=== PATIENT | male | born 1945 | race Caucasian/White ===

== ENCOUNTER 2018-02-03 13:21 | Outpatient (CLI) | payer MEDICARE, OTHER ==
--- NOTE | 2018-02-04 09:41 | XRAY Report ---
BILATERAL HANDS: 02/03/2018 HISTORY: Thumb pain. TECHNIQUE: Three views of each hand are performed. COMPARISON: Left wrist 01/07/2010. FINDINGS: RIGHT HAND: Osteoarthritic degenerative change is present at the right first SNF articulation with joint space narrowing, sclerosis, spurring, and early subluxation. Minimal scattered degenerative changes interphalangeal joints of the fingers. No other significant findings. 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 Minor scattered interphalangeal finger joint degenerative changes. Moderate radiocarpal joint degenerative change. IMPRESSION: BILATERAL DEGENERATIVE CHANGES, MOST MARKED FIRST METACARPOCARPAL ARTICULATION BILATERALLY. TD: 02/04/2018 09:28
== END 2018-02-03 13:22 | disposition home or self-care (01) ==
LOC: DI.N 13:21
PROVIDERS: ATTEND Internal Medicine
DX: M19.042 Primary osteoarthritis, left hand (principal); M19.041 Primary osteoarthritis, right hand

== ENCOUNTER 2018-02-18 11:06 | Outpatient (CLI) | payer MEDICARE, OTHER ==
--- NOTE | 2018-02-18 12:49 | XRAY Report ---
Procedure Date: 02/18/2018 Accession Number: [id number] / [id number] Procedure: XRN - Chest 2 View X-Ray CPT Code: 81347 FULL RESULT: EXAM: Chest 2 View X-Ray DATE: 02/18/2018 11:23 AM CLINICAL HISTORY: nocturnal wheezing COMPARISON: 12/24/2015 TECHNIQUE: 2 views. FINDINGS: Lungs/Pleura: No focal opacities evident. No pneumothorax or pleural effusion. Normal volumes. Mediastinum: Heart and mediastinal contours are unremarkable. Other: No acute findings compared with 12/24/2015 IMPRESSION: Negative 2-view chest radiography. RADIA
== END 2018-02-18 11:07 | disposition home or self-care (01) ==
LOC: DI.N 11:06
PROVIDERS: ATTEND Internal Medicine
DX: R06.2 Wheezing (principal)
CPT/HCPCS: 71046

== ENCOUNTER 2018-10-18 21:03 | Emergency (ER) | payer MEDICARE, OTHER ==
--- NOTE | 2018-10-18 21:44 | ED Physician Documentation ---
History of Present Illness - Stated complaint Stated Complaint: CHOKING/SOA - Chief complaint Chief Complaint: Heent - History obtained from History obtained from: Patient - History of Present Illness Timing: How many hours ago (2) Pain level max: 10 Pain level now: 1 Improved by: nothing Worsened by: swallowing, including saliva - Additonal information Additional information: sudden onset FB sensation midline low chest tonight (approximately 2 hours ago) while eating dinner. He has had similar symptoms, episodically, over the past 5 years and was seen by GI who did upper GI scope with dilatation. Immediately before I entered the room, patient says he had resolution of his symptoms. Review of Systems Cardiac: reports: Chest pain / pressure Respiratory: reports: Reviewed and negative GI: reports: Abdominal Pain, Nausea, Vomiting PD PAST MEDICAL HISTORY - Past Medical History Cardiovascular: Hypertension, High cholesterol Endocrine/Autoimmune: Type 2 diabetes - Past Surgical History Ortho: Other HEENT: Tonsil/Adenoidectomy - Present Medications Home Medications: Ambulatory Orders Medication Instructions Recorded Confirmed Aspirin [Penny Chewable Aspirin] 81 mg PO DAILY 04/22/15 04/22/15 Simvastatin [Zocor] 40 mg PO DAILY 04/22/15 04/22/15 metFORMIN [Glucophage] 500 mg PO BID 04/22/15 04/22/15 Nitroglycerin 0.4 mg SL Q5MIN PRN #30 tab.subl 10/18/18 - Allergies Allergies/Adverse Reactions: Allergies Allergy/AdvReac Type Severity Reaction Status Date / Time No Known Drug Allergies Allergy Verified 10/18/18 22:04 - Social History Does the pt smoke?: No Does the pt have substance abuse?: No - Immunizations Immunizations are current?: Yes PD ED PE NORMAL - Vitals Vital signs reviewed: Yes - General General: Alert and oriented X 3, No acute distress, Well developed/nourished - Cardiac Cardiac: RRR, No murmur - Respiratory Respiratory: No respiratory distress, Clear bilaterally - Abdomen Abdomen: Soft, Non tender Results - Vitals Vitals: Vital Signs - 24 hr 10/18/18 10/18/18 21:17 22:18 Temperature 36.8 C 36.6 C Heart Rate 86 62 Respiratory 17 16 Rate Blood Pressure 122/77 113/70 O2 Saturation 100 97 Oxygen O2 Source Room air - Labs Labs: Laboratory Tests 10/18/18 10/18/18 21:42 21:42 WBC 6.8 RBC 5.19 Hgb 15.8 Hct 46.0 MCV 88.7 MCH 30.5 MCHC 34.4 RDW 13.1 Plt Count 196 MPV 8.6 Neut # (Auto) 3.3 Lymph # (Auto) 2.6 [place] # (Auto) 0.7 Eos # (Auto) 0.1 Baso # (Auto) 0.1 Absolute Nucleated RBC 0.00 Nucleated RBC % 0.0 Sodium 134 L Potassium 3.3 L Chloride 99 L Carbon Dioxide 24 Anion Gap 11.0 BUN 11 Creatinine 1.0 Estimated GFR (MDRD) 73 L Glucose 181 H Calcium 8.9 Total Bilirubin 1.1 H AST 27 ALT 22 Alkaline Phosphatase 75 Total Protein 7.2 Albumin 4.1 Globulin 3.1 Albumin/Globulin Ratio 1.3 Lipase 45 PD MEDICAL DECISION MAKING - ED course Complexity details: reviewed old records, considered differential, d/w patient ED course: HPI is c/w esophageal food bolus impaction that has clinically resolved shortly before I entered the room. Departure - Departure Disposition: 01 Home, Self Care Clinical Impression: Esophageal obstruction due to food impaction Condition: Good Instructions: ED Foreign Body Esophageal Rslv Follow-Up: Abran Maldonado MD [Primary Care Provider] - Prescriptions: Nitroglycerin 0.4 mg SL Q5MIN PRN #30 tab.subl PRN Reason: As Needed Per Provider Orders Discharge Date/Time: 10/18/18 22:28
[2018-10-18 21:48] LABS: BASOPHILS # (AUTO) 0.1 10^3/uL (0.0-0.1); EOSINOPHILS # (AUTO) 0.1 10^3/uL (0.0-0.7); EOSINOPHILS % (AUTO) 1.1 %; HGB - HEMOGLOBIN 15.8 g/dL (14.0-18.0); LYMPHOCYTES # (AUTO) 2.6 10^3/uL (1.5-3.5); LYMPHOCYTES % (AUTO) 38.9 %; MEAN CORPUSCULAR HEMOGLOBIN 30.5 pg (27.0-31.0); MEAN CORPUSCULAR HGB CONC 34.4 g/dL (32.0-36.0); MEAN CORPUSCULAR VOLUME 88.7 fL (80.0-94.0); MEAN PLATELET VOLUME 8.6 fL (7.4-11.4); MONOCYTES # (AUTO) 0.7 10^3/uL (0.0-1.0); MONOCYTES % (AUTO) 9.7 %; NEUTROPHILS # (AUTO) 3.3 10^3/uL (1.5-6.6); NEUTROPHILS % (AUTO) 49.3 %; PLT - PLATELET COUNT 196 10^3/uL (130-450); RED BLOOD COUNT 5.19 10^6/uL (4.70-6.10); RED CELL DISTRIBUTION WIDTH 13.1 % (12.0-15.0); WHITE BLOOD COUNT 6.8 x10^3/uL (4.8-10.8)
[2018-10-18 22:00] LABS: ALBUMIN 4.1 g/dL (3.2-5.5); ALBUMIN/GLOBULIN RATIO 1.3 (1.0-2.2); BILIRUBIN,TOTAL 1.1 mg/dL (0.2-1.0); CALCIUM 8.9 mg/dL (8.5-10.3); TOTAL PROTEIN 7.2 g/dL (6.7-8.2)
[2018-10-18 22:18] VITALS: BP 113/70
== END 2018-10-18 22:28 | disposition home or self-care (01) ==
LOC: ED 21:03
DX: T18.128A Food in esophagus causing other injury, initial encounter (principal); X58.XXXA Exposure to other specified factors, initial encounter; I10 Essential (primary) hypertension; E11.9 Type 2 diabetes mellitus without complications; Z79.84 Long term (current) use of oral hypoglycemic drugs; Z79.82 Long term (current) use of aspirin
CPT/HCPCS: 36415; 80053; 83690; 85025; 99283

== ENCOUNTER 2019-10-04 10:41 | Outpatient (CLI) | payer MEDICARE, OTHER ==
--- NOTE | 2019-10-04 16:51 | CARDIAC PROCEDURE NOTE ---
DATE OF SERVICE: 10/04/2019 Physician: Jessica Ellison MD, [facility] INDICATION: Dyspnea. CARDIAC RISK FACTORS: Diabetes, male gender, advanced age, hyperlipidemia. DESCRIPTION OF PROCEDURE: After signing informed consent, the patient underwent a Leonel-protocol treadmill stress test with nuclear myocardial perfusion imaging. RESTING HEART RATE: 71. PEAK HEART RATE: 156 (106% predicted maximum heart rate for age). RESTING BLOOD PRESSURE: 125/79. PEAK BLOOD PRESSURE: Blood pressure before peak stage was 179/69 and then at very peak of exercise dropped to 121/58. The patient exercised for 7 minutes and 41 seconds on a Leonel-protocol treadmill stress test. He achieved a peak heart rate of 156 (106% PMHR) and 9.7 METS. The patient developed shortness of breath, but he had no chest pain. At peak, he appeared very short of breath, but claimed he was not. Oxygen saturation was 94-98% on room air during the entire test. Blood pressure was abnormal at the very peak at 121/58 and then in recovery it maribel to 171/74 before returning down to 162/80. RESTING EKG: Normal sinus rhythm, early repolarization. EKG AT PEAK: Diffuse upsloping ST segment depressions (loss of the early repolarization). SUMMARY: 1. Abnormal resting EKG. 2. Good exercise tolerance. 3. Abnormal blood pressure response to exercise. This type of blood pressure drop at peak could signify either 3-vessel coronary disease or hypertrophic cardiomyopathy (IHSS) with left ventricular outflow tract obstruction, or BP cuff error. 4. Nonspecific EKG changes occur with exercise at peak. 5. Nuclear images reported separately. 6. This patient's cardiac risk factors based on all the above: Moderate to High. cc: Abran Maldonado MD TD: 10/04/2019 15:43 [facility]
--- NOTE | 2019-10-05 11:14 | Nuclear Medicine Report ---
Reason: DYSPNEA Procedure Date: 10/04/2019 Accession Number: [id number] / [id number] Procedure: NM - Myocardial Perfusion STR/RST CPT Code: Final Report FULL RESULT: EXAM: SINGLE-ISOTOPE EXERCISE STRESS TEST. SINGLE-ISOTOPE AND ONE-DAY REST/STRESS MYOCARDIAL PERFUSION SCANS WITH TOMOGRAPHIC IMAGING, QUANTITATIVE ANALYSIS, WALL MOTION ANALYSIS AND CALCULATION OF EJECTION FRACTION. EXAM DATE: 10/04/2019 04:50 PM. CLINICAL HISTORY: DYSPNEA. COMPARISON: MYOCARDIAL PERFUSION 08/16/2014 8:31 AM. TECHNIQUE: A rest myocardial perfusion scan was done with tomography after the intravenous administration of 10.8 mCi Tc-99m sestamibi. After an appropriate delay, a treadmill exercise stress was performed according to department protocol. The patient exercised for 7 minutes and 41 seconds. The maximum heart rate was 156 bpm, which was 106% of the maximum predicted heart rate of 147 bpm. At approximately peak heart rate, 40.2 mCi of Tc-99m sestamibi was injected for stress myocardial perfusion scan. Motion correction was applied when appropriate. Gated tomographic images were obtained for wall motion analysis and computation of left ventricular ejection fraction. FINDINGS: Perfusion images: Left ventricular chamber size appears normal at rest and unchanged at stress. No convincing fixed perfusion deficits. No convincing reversible perfusion deficits. SSS 2, SRS 2, SDS 0. Gated images: No convincing focal wall motion abnormality. Calculated left ventricular EDV 59 mL, ESV 8 mL. The left ventricular ejection fraction is estimated at 86% (normal > 50%). IMPRESSION: 1. No convincing reversible perfusion deficits to indicate stress-induced ischemia. 2. No convincing fixed perfusion deficits. 3. Left ventricular ejection fraction of 86% (normal > 50%). Please correlate findings with stress ECG tracings and procedure notes. RADIA
== END 2019-10-04 10:42 | disposition home or self-care (01) ==
LOC: DI 10:41
PROVIDERS: ATTEND Internal Medicine
DX: R06.00 Dyspnea, unspecified (principal); R94.31 Abnormal electrocardiogram [ECG] [EKG]; E11.9 Type 2 diabetes mellitus without complications; E78.5 Hyperlipidemia, unspecified
CPT/HCPCS: 78452; 93017; A9500

== ENCOUNTER 2021-08-24 01:45 | Emergency (ER) | payer MEDICARE, OTHER ==
--- NOTE | 2021-08-24 02:11 | ED Physician Documentation ---
PD HPI CHEST PAIN - Stated complaint Stated Complaint: CHEST PX - Chief complaint Chief Complaint: Cardiac - History obtained from History obtained from: Patient - Additional information Additional information: 76yM with pmh htn, hld, dm, gerd, esophageal spasm, nonsmoker with no FH MO in first degree relative <65, p/w CP sudden onset after having stew for dinner then lying flat to sleep yesterday evening around 2300. patient experienced improvement in pain with sitting up and walking around but then it waxed and waned all night. midsternal, nonradiating, a/w mild dizziness, better with sitting forward and worse with lying flat, nonexertional. took 650 asa overnight with last dose at 1am. also took prilosec 20mg and tums without relief. denies cough, fever, leg swelling, nausea, dizziness, soa. recent nuclear stress test 10/04/19 without evidence of perfusion deficit. pain is currently 3/10 while sitting forward. Review of Systems Ten Systems: 10 systems reviewed and negative Constitutional: denies: Fever, Chills Cardiac: reports: Chest pain / pressure Respiratory: denies: Dyspnea, Cough GI: denies: Nausea, Vomiting PD PAST MEDICAL HISTORY - Past Medical History Cardiovascular: Hypertension, High cholesterol Endocrine/Autoimmune: Type 2 diabetes - Past Surgical History Past Surgical History: No Ortho: Other HEENT: Tonsil/Adenoidectomy - Present Medications Home Medications: Ambulatory Orders Medication Instructions Recorded Confirmed Aspirin [Penny Chewable Aspirin] 81 mg PO DAILY 04/22/15 08/24/21 Simvastatin [Zocor] 40 mg PO DAILY 04/22/15 08/24/21 metFORMIN [Glucophage] 500 mg PO BID 04/22/15 08/24/21 Nitroglycerin 0.4 mg SL Q5MIN PRN #30 tab.subl 10/18/18 08/24/21 - Allergies Allergies/Adverse Reactions: Allergies Allergy/AdvReac Type Severity Reaction Status Date / Time No Known Drug Allergies Allergy Verified 08/24/21 02:13 - Social History Does the pt smoke?: No Smoking Status: Never smoker Does the pt have substance abuse?: No - Immunizations Immunizations are current?: Yes PD ED PE NORMAL - Vitals Vital signs reviewed: Yes - General General: Alert and oriented X 3, No acute distress, Well developed/nourished - HEENT HEENT: Atraumatic, PERRL, EOMI - Neck Neck: Supple, no meningeal sign - Cardiac Cardiac: RRR, No murmur - Respiratory Respiratory: No respiratory distress, Clear bilaterally - Abdomen Abdomen: Non tender, Non distended - Derm Derm: Normal color, Warm and dry - Extremities Extremities: No deformity, No edema - Neuro Neuro: Alert and oriented X 3 - Psych Psych: Normal mood, Normal affect Results - Vitals Vitals: Vital Signs - 24 hr 08/24/21 08/24/21 08/24/21 02:02 02:13 02:38 Temperature 36.3 C L 36.3 C L Heart Rate 65 65 61 Respiratory 20 20 15 Rate Blood Pressure 167/94 H 164/85 H 156/90 H O2 Saturation 97 97 100 08/24/21 08/24/21 08/24/21 03:04 03:23 03:30 Temperature 36.3 C L Heart Rate 59 L 55 L 55 L Respiratory 22 22 23 Rate Blood Pressure 194/101 H 158/73 H 148/83 H O2 Saturation 100 100 100 08/24/21 03:57 Temperature 36.3 C L Heart Rate 50 L Respiratory 17 Rate Blood Pressure 155/72 H O2 Saturation 99 Oxygen O2 Source Room air - EKG (time done) 0157 Rate: Rate (enter#) (60) Rhythm: NSR [place]: Normal Intervals: Normal MS QRS: Normal Ischemia: Normal ST segments 0307 Rate: Rate (enter#) (55) Rhythm: Sinus bradycardia [place]: Normal Intervals: Normal MS QRS: Normal Ischemia: Normal ST segments - Labs Labs: Laboratory Tests 08/24/21 08/24/21 08/24/21 02:03 02:03 02:03 WBC 7.7 RBC 5.32 Hgb 16.4 Hct 47.1 MCV 88.5 MCH 30.8 MCHC 34.8 RDW 12.1 Plt Count 182 MPV 11.1 Neut # (Auto) 5.2 Lymph # (Auto) 1.6 [place] # (Auto) 0.7 Eos # (Auto) 0.1 Baso # (Auto) 0.0 Absolute Nucleated RBC 0.00 Nucleated RBC % 0.0 Sodium 132 L Potassium 3.4 L Chloride 98 L Carbon Dioxide 23 Anion Gap 11.0 BUN 16 Creatinine 1.4 H Estimated GFR (MDRD) 49 L Glucose 217 H Calcium 8.9 Total Bilirubin 1.3 H AST 16 ALT 16 Alkaline Phosphatase 68 Troponin I High Sens 2.7 Total Protein 7.3 Albumin 4.3 Globulin 3.0 Albumin/Globulin Ratio 1.4 Lipase 47 08/24/21 03:40 WBC RBC Hgb Hct MCV MCH MCHC RDW Plt Count MPV Neut # (Auto) Lymph # (Auto) [place] # (Auto) Eos # (Auto) Baso # (Auto) Absolute Nucleated RBC Nucleated RBC % Sodium Potassium Chloride Carbon Dioxide Anion Gap BUN Creatinine Estimated GFR (MDRD) Glucose Calcium Total Bilirubin AST ALT Alkaline Phosphatase Troponin I High Sens 3.5 Total Protein Albumin Globulin Albumin/Globulin Ratio Lipase PD MEDICAL DECISION MAKING - ED course ED course: 76yM p/w atypical chest pain overnight, improving in ED with IV pepcid, magic mouthwash, and ativan for treatment of gerd/possible esophageal hypermotility. HEART score 4 (age, risk factors), however patient has had recent nuclear stress that was negative and has normal ekg and troponin X 2. return precautions discussed and patient will plan to f/u with pmd for referral to GI. He has had esophageal dilation four times in the past per his report and may need further eval. Departure - Departure Disposition: 01 Home, Self Care Clinical Impression: Chest pain Condition: Good Instructions: ED Chest Pain NonCardiac Comments: You were seen in the emergency department for chest pain and underwent medical evaluation. Your ekgs and chest xray were normal. You have some elevated blood pressure and should check in with your primary doctor about this. You also have very mild damage to your kidneys (creatinine 1.4 as compared with 1.0 on last bloodwork done here in 2019) that you should also talk to your doctor about. Make sure you drink 8-10 glasses of water daily to stay hydrated. You will need to follow up with a escapement matcher about your symptoms since you need evaluation for management of your GERD and esophageal spasm. Please return to the ED if you have new or worsening symptoms or other concerns.
[2021-08-24 02:18] LABS: BASOPHILS % (AUTO) 0.5 %; EOSINOPHILS # (AUTO) 0.1 10^3/uL (0.0-0.7); EOSINOPHILS % (AUTO) 0.7 %; HCT - HEMATOCRIT 47.1 % (42.0-52.0); HGB - HEMOGLOBIN 16.4 g/dL (14.0-18.0); LYMPHOCYTES # (AUTO) 1.6 10^3/uL (1.5-3.5); LYMPHOCYTES % (AUTO) 21.4 %; MEAN CORPUSCULAR HEMOGLOBIN 30.8 pg (27.0-31.0); MEAN CORPUSCULAR HGB CONC 34.8 g/dL (32.0-36.0); MEAN CORPUSCULAR VOLUME 88.5 fL (80.0-94.0); MEAN PLATELET VOLUME 11.1 fL (7.4-11.4); MONOCYTES # (AUTO) 0.7 10^3/uL (0.0-1.0); MONOCYTES % (AUTO) 9.2 %; NEUTROPHILS # (AUTO) 5.2 10^3/uL (1.5-6.6); NEUTROPHILS % (AUTO) 67.9 %; PLT - PLATELET COUNT 182 10^3/uL (130-450); RED BLOOD COUNT 5.32 10^6/uL (4.70-6.10); RED CELL DISTRIBUTION WIDTH 12.1 % (12.0-15.0); WHITE BLOOD COUNT 7.7 x10^3/uL (4.8-10.8)
[2021-08-24 02:28] LABS: ALBUMIN 4.3 g/dL (3.2-5.5); ALBUMIN/GLOBULIN RATIO 1.4 (1.0-2.2); BILIRUBIN,TOTAL 1.3 mg/dL (0.2-1.0); CALCIUM 8.9 mg/dL (8.5-10.3); CREATININE 1.4 mg/dL (0.6-1.2); POTASSIUM 3.4 mmol/L (3.5-5.0); TOTAL PROTEIN 7.3 g/dL (6.7-8.2)
[2021-08-24] MEDS ORDERED: FAMOTIDINE 20 MG/2 ML VIAL IVP STA (02:30)
[2021-08-24] MEDS ORDERED: LIDOCAINE VISCOUS 2% 15 ML UDC MM STA (03:03)
[2021-08-24] MEDS ORDERED: MAG HYDROX/AL HYDROX/SIMETH 30 ML UDC PO STA (03:04)
[2021-08-24] MEDS ORDERED: diphenhydrAMINE ELIXIR 25 MG/10 ML UDC PO STA (03:05)
[2021-08-24] MEDS ORDERED: LORazepam 2 MG/ML VIAL IVP STA (03:38)
[2021-08-24 04:52] VITALS: BP 161/83
--- NOTE | 2021-08-24 07:11 | XRAY Report ---
PROCEDURE: Chest 1 View X-Ray INDICATIONS: Chest Pain COMMENTS: STERNAL CHEST PAIN AND PRESSURE AT 2300. BB MARKER AT SITE OF GREATEST PAIN. PRIORS: XR CHEST 02/18/18, XR CHEST 12/24/15, XR CHEST 04/22/15, XR CHEST 08/02/14 TECHNIQUE: One view of the chest was acquired. COMPARISON: 02/18/2018 FINDINGS: Surgical changes and devices: None. Lungs and pleura: No pleural effusions or pneumothorax. There is left basilar atelectasis. Lungs a re clear. Mediastinum: Mediastinal contours appear normal. Heart size is normal. Bones and chest wall: No suspicious bony lesions. Overlying soft tissues appear unremarkable. IMPRESSION: No acute cardiopulmonary abnormality Findings above correspond with preliminary findings by [facility]. Reviewed by: Paul Tuttle on 08/24/2021 6:10 AM [facility] Approved by: Paul Tuttle on 08/24/2021 6:10 AM [facility] Station ID: [id number]
== END 2021-08-24 04:45 | disposition home or self-care (01) ==
LOC: ED 01:45
DX: R07.9 Chest pain, unspecified (principal); I10 Essential (primary) hypertension; E11.9 Type 2 diabetes mellitus without complications; Z79.84 Long term (current) use of oral hypoglycemic drugs
CPT/HCPCS: 36415; 71045; 80053; 83690; 84484; 85025; 93005; 96374; 96375; 99284; A9270; J2060

== ENCOUNTER 2021-08-24 07:54 | Outpatient (CLI) | payer MEDICARE, OTHER | END 2021-08-24 07:55 | disposition critical access hospital (66) | LOC: EMS 07:54 | DX: R07.89 Other chest pain (principal); R10.13 Epigastric pain | CPT/HCPCS: A0425; A0427 ==

== ENCOUNTER 2021-08-24 08:13 | Emergency (ER) | payer MEDICARE, OTHER ==
[2021-08-24] MEDS ORDERED: MAG HYDROX/AL HYDROX/SIMETH 30 ML UDC PO STA (08:25)
[2021-08-24] MEDS ORDERED: diphenhydrAMINE ELIXIR 25 MG/10 ML UDC PO STA (08:25)
--- NOTE | 2021-08-24 08:25 | ED Physician Documentation ---
PD HPI CHEST PAIN - Stated complaint Stated Complaint: CP - History obtained from History obtained from: Patient - History of Present Illness Timing - onset: Last night Timing - onset during: Rest (He had had a very large meal last evening and states he was feeling nausea and substernal and epigastric discomfort. Came to the ER during the night. Symptoms have persisted this morning. Emesis once since prior discharge.) Timing - duration: Hours (12) Timing - details: Gradual onset, Still present, Waxing and waning Quality: Pressure, Aching, Sharp (has some sharpness right lower chest after vomiting [employer].) Location: Substernal, Epigastric. No: Upper back Radiation: No: Jaw, Neck, Back Improved by: Other (sitting upright). No: Rest Worsened by: Position (lying flat). No: Inspiration, Movement, Palpation Associated symptoms: Nausea, Vomiting (once), General Weakness. No: Shortness of air, Feeling faint / dizzy, Palpitations Recently seen: Emergency Dept (about 6 hours prior for same symptoms.) Review of Systems Constitutional: denies: Fever, Chills Nose: denies: Rhinorrhea / runny nose, Congestion Throat: denies: Sore throat Respiratory: denies: Cough GI: denies: Vomiting, Diarrhea, Bloody / black stool Musculoskeletal: denies: Extremity swelling Neurologic: denies: Generalized weakness, Near syncope PD PAST MEDICAL HISTORY - Past Medical History Cardiovascular: Hypertension, High cholesterol Endocrine/Autoimmune: Type 2 diabetes GI: GERD, Other - Past Surgical History Past Surgical History: No Ortho: Other HEENT: Tonsil/Adenoidectomy - Present Medications Home Medications: Ambulatory Orders Medication Instructions Recorded Confirmed Aspirin [Penny Chewable Aspirin] 81 mg PO DAILY 04/22/15 08/24/21 Simvastatin [Zocor] 40 mg PO DAILY 04/22/15 08/24/21 metFORMIN [Glucophage] 500 mg PO BID 04/22/15 08/24/21 Nitroglycerin 0.4 mg SL Q5MIN PRN #30 tab.subl 10/18/18 08/24/21 Famotidine [Pepcid] 20 mg PO BID 10 Days #20 tablet 08/24/21 HYDROcod/ACETAM 5/325 [Huttig 5/325] 1 ea PO Q6H PRN #12 tablet 08/24/21 Ondansetron Odt [Zofran] 4 mg TL Q6H PRN #10 tablet 08/24/21 Sucralfate [Carafate] 1 gm PO ACHS 7 Days #28 tablet 08/24/21 - Allergies Allergies/Adverse Reactions: Allergies Allergy/AdvReac Type Severity Reaction Status Date / Time No Known Drug Allergies Allergy Verified 08/24/21 08:32 - Social History Does the pt smoke?: No Smoking Status: Never smoker Does the pt drink ETOH?: Yes Does the pt have substance abuse?: No - Immunizations Immunizations are current?: Yes - POLST Patient has POLST: No PD ED PE NORMAL - Vitals Vital signs reviewed: Yes - General General: Alert and oriented X 3, No acute distress, Well developed/nourished - HEENT HEENT: Moist mucous membranes, Pharynx benign - Neck Neck: Supple, no meningeal sign, No adenopathy - Cardiac Cardiac: RRR, No murmur - Respiratory Respiratory: Clear bilaterally - Abdomen Abdomen: Normal bowel sounds, Soft, Non tender, Non distended, No organomegaly - Derm Derm: Normal color, Warm and dry - Extremities Extremities: No edema, No calf tenderness / cord - Neuro Neuro: Alert and oriented X 3, No motor deficit, Normal speech Results - Vitals Vitals: Vital Signs - 24 hr 08/24/21 08/24/21 08:14 09:38 Temperature 37.2 C Heart Rate 65 54 L Respiratory 16 23 Rate Blood Pressure 125/69 126/73 O2 Saturation 98 97 Oxygen O2 Source Room air - EKG (time done) on arrival Rhythm: NSR [place]: Normal Intervals: Normal DC QRS: Normal Ischemia: Normal ST segments. No: ST elevation c/w ischemia, ST depression Compare to prior EKG: Unchanged from prior EKG - Labs Labs: Laboratory Tests 08/24/21 08/24/21 08/24/21 08:36 08:36 08:36 WBC 13.4 H RBC 5.08 Hgb 15.7 Hct 45.4 MCV 89.4 MCH 30.9 MCHC 34.6 RDW 12.0 Plt Count 199 MPV 11.4 Neut # (Auto) 11.5 H Lymph # (Auto) 1.0 L [place]ahan # (Auto) 0.8 Eos # (Auto) 0.0 Baso # (Auto) 0.1 Absolute Nucleated RBC 0.00 Nucleated RBC % 0.0 Sodium 138 Potassium 4.1 Chloride 101 Carbon Dioxide 25 Anion Gap 12.0 BUN 16 Creatinine 1.1 Estimated GFR (MDRD) 65 L Glucose 234 H Calcium 9.1 Total Bilirubin 1.5 H AST 17 ALT 15 Alkaline Phosphatase 63 Troponin I High Sens 3.3 Total Protein 7.2 Albumin 4.0 Globulin 3.2 Albumin/Globulin Ratio 1.3 Lipase 31 - Rads (name of study) chest xray Radiology: Prelim report reviewed (still clear; no obvious rib deformities.), See rad report PD MEDICAL DECISION MAKING - ED course Complexity details: reviewed old records (from earlier this morning. ), reviewed results, considered differential (In the ER overnight with substernal pain and nausea attributed to gastritis or food related from heavy meal. Negative EKG and troponins and chest x-ray. He vomited at home after discharge and hurts on the right chest. Pain was back so called EMS again.), d/w patient Departure - Departure Disposition: , Self Care Clinical Impression: Esophagitis, acute Chest pain Qualifiers: Chest pain type: precordial pain Qualified Code(s): R07.2 - Precordial pain Condition: Stable Record reviewed to determine appropriate education?: Yes Instructions: ED Gastritis Follow-Up: Abran Maldonado MD [Primary Care Provider] - Prescriptions: Sucralfate [Carafate] 1 gm PO ACHS 7 Days #28 tablet HYDROcod/ACETAM 5/325 [[place]uttig 5/325] 1 ea PO Q6H PRN #12 tablet PRN Reason: Pain Famotidine [Pepcid] 20 mg PO BID 10 Days #20 tablet Ondansetron Odt [Zofran] 4 mg TL Q6H PRN #10 tablet PRN Reason: Nausea / Vomiting Comments: There is still no signs of more serious cause such as heart attack, pneumonia, collapsed lung, gallbladder process or pancreatitis. At this point it would seem likely to be an irritation of the esophagus or stomach (esophagitis/gastritis) which commonly relates to reflux and acid production. Irritants to the stomach can be aspirin, ibuprofen/naproxen, caffeine, alcohol, spicy foods. I would avoid these for the next several days and in particular I would hold your baby aspirin for a few days. Tylenol if needed for pains. To that you could add hydrocodone if needed for worse pain. Ondansetron if needed for nausea. I would suggest using an acid reducing medicine such as famotidine twice daily for the next 7 to 10 days. Also coating the stomach with sacral fate 4 times a day for the next 5 days or so. Recheck if not improved well over the next few days. Follow-up with your primary care. [facility]. I am prescribing a short course of narcotic pain medication for you. These are potentially dangerous and addictive medications that should be used carefully. These medications may constipate you. Take an snkd-[id number]-[id number] stool softener such as docusate twice daily with plenty of water while taking these medications. If you go 24 hours without a bowel movement, take erma-[id number]-[id number] MiraLAX, per package instructions. Do not drink or drive while taking these medications. If you received narcotic or sedating medications while in the emergency department do not drive for 24 hours. Store this medication in a safe, secure place and out of reach of children. It is a violation of federal law to give or sell this medication to another person or to use in a manner other than prescribed. The ED will not refill narcotic prescriptions, including prescriptions lost or stolen. You can dispose of unwanted medications at the [facility]'s office or at several pharmacies such as [facility]. Discharge Date/Time: 08/24/21 10:03
--- NOTE | 2021-08-24 08:58 | XRAY Report ---
PROCEDURE: Chest 1 View X-Ray INDICATIONS: Chest Pain TECHNIQUE: One view of the chest was acquired. COMPARISON: 08/24/2021 FINDINGS: Surgical changes and devices: None. Lungs and pleura: No pleural effusions or pneumothorax. Lungs are clear. Mediastinum: Mediastinal contours appear normal. Heart size is normal. Bones and chest wall: No suspicious bony lesions. Overlying soft tissues appear unremarkable. IMPRESSION: No acute cardiopulmonary abnormality. Reviewed by: Paul Tuttle on 08/24/2021 7:57 AM [facility] Approved by: Paul Tuttle on 08/24/2021 7:[address] [facility] Station ID: [id number]
[2021-08-24 09:00] LABS: ALBUMIN/GLOBULIN RATIO 1.3 (1.0-2.2); BILIRUBIN,TOTAL 1.5 mg/dL (0.2-1.0); CALCIUM 9.1 mg/dL (8.5-10.3); CREATININE 1.1 mg/dL (0.6-1.2); POTASSIUM 4.1 mmol/L (3.5-5.0); TOTAL PROTEIN 7.2 g/dL (6.7-8.2)
[2021-08-24 09:27] LABS: BASOPHILS # (AUTO) 0.1 10^3/uL (0.0-0.1); BASOPHILS % (AUTO) 0.4 %; HCT - HEMATOCRIT 45.4 % (42.0-52.0); HGB - HEMOGLOBIN 15.7 g/dL (14.0-18.0); LYMPHOCYTES % (AUTO) 7.5 %; MEAN CORPUSCULAR HEMOGLOBIN 30.9 pg (27.0-31.0); MEAN CORPUSCULAR HGB CONC 34.6 g/dL (32.0-36.0); MEAN CORPUSCULAR VOLUME 89.4 fL (80.0-94.0); MEAN PLATELET VOLUME 11.4 fL (7.4-11.4); MONOCYTES # (AUTO) 0.8 10^3/uL (0.0-1.0); MONOCYTES % (AUTO) 5.9 %; NEUTROPHILS # (AUTO) 11.5 10^3/uL (1.5-6.6); NEUTROPHILS % (AUTO) 85.8 %; PLT - PLATELET COUNT 199 10^3/uL (130-450); RED BLOOD COUNT 5.08 10^6/uL (4.70-6.10); WHITE BLOOD COUNT 13.4 x10^3/uL (4.8-10.8)
[2021-08-24] MEDS ORDERED: ACETAMINOPHEN 325 MG TABLET PO STA (09:31)
[2021-08-24] MEDS ORDERED: SUCRALFATE 1 GM/10 ML UDC PO STA (09:31)
[2021-08-24] MEDS ORDERED: FAMOTIDINE 20 MG/2 ML VIAL IVP STA (09:35)
[2021-08-24 09:39] VITALS: BP 126/73
== END 2021-08-24 10:03 | disposition home or self-care (01) ==
LOC: EDUNIT# → ED 08:13
DX: K20.90 Esophagitis, unspecified without bleeding (principal); R07.9 Chest pain, unspecified; K21.9 Gastro-esophageal reflux disease without esophagitis; E11.9 Type 2 diabetes mellitus without complications; Z79.84 Long term (current) use of oral hypoglycemic drugs; I10 Essential (primary) hypertension; R42 Dizziness and giddiness
CPT/HCPCS: 36415; 71045; 80053; 83690; 84484; 85025; 93005; 96374; 96375; 99284; A9270; J2060

== ENCOUNTER 2023-04-03 01:59 | Emergency (ER) | payer MEDICARE, OTHER ==
--- NOTE | 2023-04-03 02:51 | ED Physician Documentation ---
PD HPI ABD PAIN - Stated complaint Stated Complaint: ABD PX - Chief complaint Chief Complaint: Abd Pain - History obtained from History obtained from: Patient - Additional information Additional information: HPI from patient. Patient c/o rapid onset abdominal pain, diffuse but most pronounced across lower abdomen, with nausea vomiting. Onset was while lying in bed awake about to go to sleep at home, approximately 1 hour [employer]. No exacerbating nor ameliorating factors. Has not had this pain before. Without specific intervention, the pain has already nearly resolved. Only past surgical history is tonsils/adenoids Review of Systems Constitutional: denies: Fever, Chills, Sweats Cardiac: reports: Reviewed and negative Respiratory: reports: Reviewed and negative GI: reports: Abdominal Pain, Nausea, Vomiting. denies: Abdominal Swelling, Constipation, Diarrhea, Hematemesis, Bloody / black stool : denies: Dysuria, Frequency PD PAST MEDICAL HISTORY - Past Medical History Cardiovascular: Hypertension, High cholesterol Endocrine/Autoimmune: Type 2 diabetes GI: GERD, Other - Past Surgical History Past Surgical History: No Ortho: Other HEENT: Tonsil/Adenoidectomy - Present Medications Home Medications: Ambulatory Orders Medication Instructions Recorded Confirmed Aspirin [Penny Chewable Aspirin] 81 mg PO DAILY 04/22/15 08/24/21 Simvastatin [Zocor] 40 mg PO DAILY 04/22/15 08/24/21 metFORMIN [Glucophage] 500 mg PO BID 04/22/15 08/24/21 Nitroglycerin 0.4 mg SL Q5MIN PRN #30 tab.subl 10/18/18 08/24/21 Famotidine [Pepcid] 20 mg PO BID 10 Days #20 tablet 08/24/21 HYDROcod/ACETAM 5/325 [[place] 5/325] 1 ea PO Q6H PRN #12 tablet 08/24/21 Ondansetron Odt [Zofran] 4 mg TL Q6H PRN #10 tablet 08/24/21 Sucralfate [Carafate] 1 gm PO ACHS 7 Days #28 tablet 08/24/21 - Allergies Allergies/Adverse Reactions: Allergies Allergy/AdvReac Type Severity Reaction Status Date / Time No Known Drug Allergies Allergy Verified 08/24/21 08:32 - Social History Does the pt smoke?: No Smoking Status: Never smoker Does the pt drink ETOH?: Yes Does the pt have substance abuse?: No - Immunizations Immunizations are current?: Yes - POLST Patient has POLST: No PD ED PE NORMAL - Vitals Vital signs reviewed: Yes - General General: Alert and oriented X 3, No acute distress, Well developed/nourished - Cardiac Cardiac: RRR - Respiratory Respiratory: No respiratory distress, Clear bilaterally - Abdomen Abdomen: Normal bowel sounds, Soft, Non tender, Non distended, No organomegaly - Back Back: No CVA TTP - Derm Derm: Normal color, Warm and dry, No rash Results - Vitals Vitals: Oxygen O2 Source Room air - Labs Labs: Laboratory Tests 04/03/23 04/03/23 04/03/23 03:27 03:27 03:35 WBC 11.8 H RBC 5.45 Hgb 16.6 Hct 50.2 MCV 92.1 MCH 30.5 MCHC 33.1 RDW 12.2 Plt Count 201 MPV 10.9 Neut # (Auto) 9.8 H Lymph # (Auto) 0.7 L [place] # (Auto) 1.2 H Eos # (Auto) 0.0 Baso # (Auto) 0.1 Absolute Nucleated RBC 0.00 Nucleated RBC % 0.0 Sodium 138 Potassium 4.4 Chloride 104 Carbon Dioxide 31 Anion Gap 3.0 L BUN 12 Creatinine 1.0 Estimated GFR (MDRD) 73 L Glucose 173 H Calcium 9.4 Total Bilirubin 1.0 AST 12 ALT 12 Alkaline Phosphatase 65 Total Protein 6.8 Albumin 4.2 Globulin 2.6 Albumin/Globulin Ratio 1.6 Lipase 42 Urine Color YELLOW Urine Clarity CLEAR Urine pH 5.5 Ur Specific [place] 1.020 Urine Protein NEGATIVE Urine Glucose (UA) NEGATIVE Urine Ketones 15 H Urine Occult Blood NEGATIVE Urine Nitrite NEGATIVE Urine Bilirubin NEGATIVE Urine Urobilinogen 0.2 (NORMAL) Ur Leukocyte Esterase NEGATIVE Ur Microscopic Review NOT INDICATED Urine Culture Comments NOT INDICATED PD Medical Decision Making - ED course Complexity details: reviewed results, re-evaluated patient, considered differential, d/w patient ED course: No concerning nor diagnostic findings on tonight's blood tests; minimal leukocytosis noted (WBC 11.8), mild hyperglycemia (178). Normal urinalysis except 15 ketones. He is asymptomatic on reevaluation when results are d/w patient. He declines pain medication, declines antinauseants. Further emergent testing is not indicated at this time. Return precautions discussed. Departure - Departure Disposition: 01 Home, Self Care Clinical Impression: Abdominal pain Qualifiers: Abdominal location: lower abdomen, unspecified Qualified Code(s): R10.30 - Lower abdominal pain, unspecified Condition: Good Instructions: ED Abdominal Pain Unkn Cause Male Comments: There were no concerning nor diagnostic findings on tonight's tests (blood tests, urinalysis). or urinalysis the cause of your symptoms is not apparent at this time. As your symptoms have resolved without any specific intervention, further testing in the emergency department is not indicated at this time. Forms: PCP List Discharge Date/Time: 04/03/23 05:51
[2023-04-03 03:36] LABS: BASOPHILS # (AUTO) 0.1 10^3/uL (0.0-0.1); BASOPHILS % (AUTO) 0.4 %; EOSINOPHILS % (AUTO) 0.3 %; HCT - HEMATOCRIT 50.2 % (42.0-52.0); HGB - HEMOGLOBIN 16.6 g/dL (14.0-18.0); LYMPHOCYTES # (AUTO) 0.7 10^3/uL (1.5-3.5); LYMPHOCYTES % (AUTO) 5.8 %; MEAN CORPUSCULAR HEMOGLOBIN 30.5 pg (27.0-31.0); MEAN CORPUSCULAR HGB CONC 33.1 g/dL (32.0-36.0); MEAN CORPUSCULAR VOLUME 92.1 fL (80.0-94.0); MEAN PLATELET VOLUME 10.9 fL (7.4-11.4); MONOCYTES # (AUTO) 1.2 10^3/uL (0.0-1.0); MONOCYTES % (AUTO) 9.9 %; NEUTROPHILS # (AUTO) 9.8 10^3/uL (1.5-6.6); NEUTROPHILS % (AUTO) 83.3 %; PLT - PLATELET COUNT 201 10^3/uL (130-450); RED BLOOD COUNT 5.45 10^6/uL (4.70-6.10); RED CELL DISTRIBUTION WIDTH 12.2 % (12.0-15.0); WHITE BLOOD COUNT 11.8 x10^3/uL (4.8-10.8)
[2023-04-03 03:50] LABS: ALBUMIN 4.2 g/dL (3.2-5.5); ALBUMIN/GLOBULIN RATIO 1.6 (1.0-2.2); CALCIUM 9.4 mg/dL (8.5-10.3); POTASSIUM 4.4 mmol/L (3.5-4.5); TOTAL PROTEIN 6.8 g/dL (6.4-8.9)
[2023-04-03 04:29] LABS: BILIRUBIN,URINE NEGATIVE (NEGATIVE); GLUCOSE, URINE (UA) NEGATIVE (NEGATIVE); KETONES,URINE (UA) 15 mg/dL (NEGATIVE); LEUKOCYTE ESTERASE, URINE NEGATIVE (NEGATIVE); NITRITE,URINE NEGATIVE (NEGATIVE); OCCULT BLOOD,URINE NEGATIVE (NEGATIVE); PH,URINE 5.5 PH (5.0-7.5); PROTEIN,URINE NEGATIVE (NEGATIVE); UROBILINOGEN,URINE 0.2 (NORMAL) E.U./dL (NORMAL)
[2023-04-03 05:00] LABS: CLARITY,URINE CLEAR (CLEAR)
[2023-04-03 05:56] VITALS: BP 125/75
== END 2023-04-03 05:51 | disposition home or self-care (01) ==
LOC: ED 01:59
DX: R10.30 Lower abdominal pain, unspecified (principal)
CPT/HCPCS: 36415; 80053; 81001; 81003; 83690; 85025; 87086; 99283

== ENCOUNTER 2023-12-23 14:27 | Outpatient (CLI) | payer MEDICARE, OTHER ==
--- NOTE | 2023-12-23 17:20 | XRAY Report ---
PROCEDURE: Shoulder 2+V LT INDICATIONS: PAIN IN LEFT SHOULDER TECHNIQUE: 3 views of the shoulder were acquired. COMPARISON: None. FINDINGS: Bones: No fractures or dislocations. No suspicious bony lesions. Mild joint space narrowing is pres ent at the glenohumeral and acromioclavicular joints. Visualized ribs appear intact. Soft tissues: No suspicious soft tissue calcifications. The visualized lungs are within normal limi ts. IMPRESSION: No acute bony abnormality. If pain persists with conservative management, consider repeat radiographs in 10-14 days or cross-sectional imaging. Mild degenerative change. Reviewed by: Kimberley Jackman MD on 12/23/2023 5:19 PM PDT Approved by: Kimberley Jackman MD on 12/23/2023 5:19 PM PDT Station ID: [id number]
== END 2023-12-23 14:28 | disposition home or self-care (01) ==
LOC: DI.N 14:27
PROVIDERS: ATTEND Internal Medicine
DX: M25.512 Pain in left shoulder (principal)

== ENCOUNTER 2024-04-19 13:45 | Outpatient (CLI) | payer MEDICARE, OTHER | END 2024-04-19 14:00 | disposition home or self-care (01) | LOC: LAB.N 13:45 | PROVIDERS: ATTEND Physician Assistant Medical | DX: N39.0 Urinary tract infection, site not specified (principal) | CPT/HCPCS: 87086 ==